=== PATIENT | female | born 1960 | race Caucasian/White ===

== ENCOUNTER → 2017-02-19 | Outpatient (CLI) | payer BC ==
[~2017-02-19] MED LIST: "\\\"PREP SPRAY\\\"-TIN4 OZ"; ASPIRIN LO-DOSE81 MG; CRANBERRY500 M1; CRANBERRY500 M3; FISH OIL1000 MG; KEFLEX500 MG; PRENA1 CHEW TA1.4 MG; THERA-VITE W/ B1 TAB; VITAMIN D-40400 UNIT
== END | disposition disaster alternative care site (69) ==
LOC: GBCOE 14:45
DX: Z12.31 Encounter for screening mammogram for malignant neoplasm of breast (principal)
CPT/HCPCS: G0202